=== PATIENT | female | born 1930 | race Caucasian/White ===

== ENCOUNTER → 2017-02-05 16:43 | Outpatient (CLI) | payer MEDICARE ==
[2014-03-28 16:02] VITALS: BMI 25.7
[~2017-02-05 16:43] MED LIST: ASPIRIN EC81 M1 PO; DYAZIDE 37.5/251 CAP PO; FISH OIL 500 MG1 CAP PO; HYDROCODONE-APA1 TAB PO; MICARDIS40 MG PO; MULTI-DAY VITAM1 TAB PO; PRILOSEC20 MG PO
== END | disposition home or self-care (01) ==
LOC: D.MAMMO 12-16 10:00 → D.US 12-16 11:00 → D.MAMMO 02-02 10:30 → D.US 02-02 11:00 → D.MAMMO 09:00
DX: Z85.3 Personal history of malignant neoplasm of breast (principal)

== ENCOUNTER 2018-02-07 19:00 | Outpatient (CLI) | payer MEDICARE ==
[2014-03-28 16:02] VITALS: BMI 25.7
== END 2018-02-07 23:59 | disposition home or self-care (01) ==
LOC: D.MAMMO 19:00
DX: Z85.3 Personal history of malignant neoplasm of breast (principal)

== ENCOUNTER 2019-02-07 08:00 | Outpatient (CLI) | payer MEDICARE ==
[2014-03-28 16:02] VITALS: BMI 25.7
== END 2019-02-07 23:59 | disposition home or self-care (01) ==
LOC: D.MAMMO 08:00
PROVIDERS: ATTEND Family Medicine
DX: Z85.3 Personal history of malignant neoplasm of breast (principal)